=== PATIENT | female | born 1980 | race African-American/Black ===

== ENCOUNTER 2020-06-23 13:32 | Emergency (ER) | payer OTHER ==
[2020-06-23 13:40] VITALS: BP 141/90; PULSE 110; TEMP 98.3; BMI 37.1
--- NOTE | 2020-06-23 13:42 | PDOC ---
Rapid Medical Evaluation Chief Complaint: [facility] [place] Time Seen by Provider: 06/23/20 13:36 Medical Evaluation: 06/23/20 13:37 Pt presents for evaluation of a positive test. She states her LMP was April 13. States she had some spotting in May, but nothing since then. 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
--- NOTE | 2020-06-23 14:25 | PDOC ---
History of Present Illness - General Chief [place] [facility] [place] Complaint: PREG TEST Time Seen by Provider: 06/23/20 13:36 History Source: Patient - History of Present Illness Timing/Duration: reports: other Past History - Medical History Allergies/Adverse Reactions: Allergies Allergy/AdvReac Type Severity Reaction Status Date / Time No Known Allergies Allergy Verified 06/23/20 13:39 Home Medications: Ambulatory Orders Nitrofurantoin Monohyd/M-Cryst [Macrobid -] 100 mg PO BID #14 capsule 06/23/20 COPD: No HTN: Yes - Reproductive History Is Patient Now?: Yes - Psycho-Social/Smoking History Smoking History: Never smoked Information on smoking cessation initiated: No - Substance Abuse Hx (Audit-C & DAST Scrn) How often the patient has a drink containing alcohol: Never Score: In Men: 4 or > Positive; In Women: 3 or > Positive: 0 Screen Result (Pos requires Nsg. Audit-10AR): Negative In the last yr the pt used illegal drug/Rx for NonMed reason: No Score: Yes response is considered Positive: 0 Screen Result (Positive result requires Nsg. DAST-10): Negative *Physical Exam - Vital Signs Last Vital Signs Temp Pulse Resp BP Pulse Ox 98.3 F 110 H 19 141/90 99 06/23/20 13:37 06/23/20 13:37 06/23/20 13:37 06/23/20 13:37 06/23/20 13:37 Medical Decision Making - Medical Decision Making 06/23/20 14:40 40-year-old female , ~9-10 weeks by dates, here to "check on my baby" and start vitamins. Patient denies any abdominal pain, vag bleed, dysuria, n/v/f/c. States she has not f/u with COLLECTION ANALYST yet but has a number to clinic. Pt decided to come to the ED to start her care. Patient well-appearing a nd stable. Urine preg positive with >4K vlad and +LE on UA, cx sent. As discussed with patient, given no abdominal pain or bleeding, no need for ER work-up at this time. Patient to be dc w/ abx and follow-up with COLLECTION ANALYST. Pt's HR 70 upon dc Discharge - Discharge Information Problems reviewed: Yes Clinical Impression/Diagnosis: Antepartum asymptomatic bacteriuria Qualifiers: Weeks of gestation: 9 weeks Qualified Code(s): Z3A.09 - 9 weeks gestation of Condition: Good Disposition: HOME - Additional Discharge Information Prescriptions: Nitrofurantoin Monohyd/M-Cryst [Macrobid -] 100 mg PO BID #14 capsule - Follow up/Referral - Patient Discharge Instructions Additional Instructions: Your test is positive Please follow up w/ RESTAURANT ASSISTANT for initiation of care Return to ER as needed - Post Discharge Activity
[2020-06-23 14:35] LABS: EPI CELLS >36 /uL (0-25.1); HYALINE CASTS 15 /uL (0-3.1); PH,URINE 5.5 (5.0-8.0); URINE APPEARANCE TURBID; URINE BACTERIA 4168 /uL (0-1359); URINE BILIRUBIN NEGATIVE (NEGATIVE); URINE COLOR DK YELLOW; URINE GLUCOSE (UA) NEGATIVE (NEGATIVE); URINE KETONE TRACE (NEGATIVE); URINE LEUK ESTERASE 2+ (NEGATIVE); URINE NITRITE NEGATIVE (NEGATIVE); URINE PROTEIN 1+ (NEGATIVE); URINE RBC 85 /uL (0-23.9); URINE WBC 181 /uL (0-25.8)
== END 2020-06-23 14:39 | disposition home or self-care (01) ==
LOC: JERFT 13:32
DX: O23.91 Unspecified genitourinary tract infection in pregnancy, first trimester (principal); Z3A.09 9 weeks gestation of pregnancy
CPT/HCPCS: 81003; 84703; 87086; 99284-25

== ENCOUNTER 2020-10-16 10:30 | Emergency (ER) | payer OTHER ==
[2020-10-16 10:56] VITALS: PULSE 92; TEMP 98.2; BMI 38.7
[2020-10-16 12:00] VITALS: BP 145/102
[2020-10-16 12:08] LABS: BASO % 0.7 % (0-2.0); EOS % 0.7 % (0-4.5); HEMATOCRIT 33.2 % (32.4-45.2); HEMOGLOBIN 11.6 GM/dL (10.7-15.3); LYMPH % 25.2 % (8-40); MCH 32.6 pg (25.7-33.7); MCHC 34.9 g/dl (32.0-36.0); MEAN CELL VOLUME 93.4 fl (80-96); MEAN PLT VOLUME 7.3 fl (7.5-11.1); MONO % 5.2 % (3.8-10.2); NEUT % 68.2 % (42.8-82.8); PLATELET COUNT 326 K/MM3 (134-434); RBC 3.55 M/mm3 (3.60-5.2); RDW 13.7 % (11.6-15.6)
[2020-10-16 12:27] LABS: EPI CELLS >36 /uL (0-25.1); HYALINE CASTS 18 /uL (0-3.1); PH,URINE 5.5 (5.0-8.0); URINE APPEARANCE CLOUDY; URINE BACTERIA 588 /uL (0-1359); URINE BILIRUBIN 1+ (NEGATIVE); URINE COLOR DK YELLOW; URINE GLUCOSE (UA) NEGATIVE (NEGATIVE); URINE KETONE TRACE (NEGATIVE); URINE LEUK ESTERASE TRACE (NEGATIVE); URINE NITRITE NEGATIVE (NEGATIVE); URINE PROTEIN 3+ (NEGATIVE); URINE RBC 41 /uL (0-23.9); URINE WBC 47 /uL (0-25.8)
[2020-10-16 12:36] LABS: POTASSIUM 3.6 mmol/L (3.5-5.1)
[2020-10-16 12:39] LABS: ALBUMIN 2.9 g/dl (3.4-5.0); BLOOD UREA NITROGEN 3.7 mg/dL (7-18)
[2020-10-16 12:42] LABS: CREATININE 0.6 mg/dL (0.55-1.3)
[2020-10-16 12:43] LABS: BILIRUBIN,TOTAL 0.4 mg/dL (0.2-1)
[2020-10-16 12:44] LABS: TOT PROT 7.2 g/dl (6.4-8.2)
== END 2020-10-16 13:20 | disposition home or self-care (01) ==
LOC: JER 10:30
DX: O12.12 Gestational proteinuria, second trimester (principal); O16.2 Unspecified maternal hypertension, second trimester
CPT/HCPCS: 36415; 80053; 81003; 85025; 87086; 93005; 93010; 99284-25

== ENCOUNTER 2020-11-11 08:45 | Inpatient (IN) | payer OTHER ==
[2020-11-11 11:13] VITALS: BP 165/111; PULSE 99; TEMP 98.3; BMI 38.2
== END 2020-11-11 10:35 | disposition left against medical advice (07) | DRG 560 ==
LOC: JLDR 08:45
PROVIDERS: ADMIT Obstetrics & Gynecology; ATTEND Obstetrics & Gynecology
DX: O16.4 Unspecified maternal hypertension, complicating childbirth (principal); O36.5930 Maternal care for other known or suspected poor fetal growth, third trimester, not applicable or unspecified; Z3A.31 31 weeks gestation of pregnancy
CPT/HCPCS: 86850; 86900; 86901